=== PATIENT | male | born 1980 | race Caucasian/White ===

== ENCOUNTER 2023-02-02 19:13 | Emergency (ER) | payer OTHER, SELFPAY ==
[2023-02-02 19:27] VITALS: BP 139/80; PULSE 84; RESP 16; TEMP 36.9; O2SAT 97
--- NOTE | 2023-02-02 19:52 | ED.GENADUL_ITS ---
Discharge Plan Disposition Patient Disposition: Home Condition: Stable Discharge Details Clinical Impression: Streptococcal sore throat Primary Care Provider: Shakira Grubbs V ED Provider: Maria Del Carmen Hahn Home Meds and New Rx's Prescriptions: New clindamycin HCl 300 mg capsule 300 mg PO BID 10 Days Qty: 20 0RF Rx Instructions: Take 1 capsule twice daily for the next 10 days No Action cetirizine [Zyrtec] 10 mg Tablet 10 mg PO DAILY Discharge Instructions Instructions: Strep Throat (ED) Stand Alone Forms: Work Release Discharge Data Discharge Date/Time-TO BE ENTERED AT DEPARTURE: 02/02/23 20:14 Medical Decision Making 42-year-old male presents to the ER with a chief complaint of sore throat which has been worse for the last 3 to 4 days he does have positive exudate is erythemic tonsils are 2+ bilaterally. Does have recurrent strep last treated in October. He has no known drug allergies. Rapid strep negative at this time. Patient given Clindamycin, instructed on home care and discharged to follow up with PCP if needed. HPI General Mode of arrival: ambulatory . Date/Time Provider Initiated Documentation: 02/02/23 19:22 . Limitations to Documentation: no limitations . Information obtained by: patient, RN notes reviewed and old records reviewed . HPI Narrative: 42 year old male presents with cc of sore throat with exudate x 4 days. He presents with his significant other with similar complaints. He has had Strep multiple times in the past, as recent as October. Denies any cough, fever, or any other associated symptoms. Related Data Home Medications Medication Instructions Recorded Confirmed cetirizine 10 mg tablet (Zyrtec) 10 mg PO DAILY 02/02/23 02/02/23 clindamycin HCl 300 mg capsule 300 mg PO BID Strep throat 10 days 02/02/23 #20 caps Previous Rx's Medication Instructions Recorded clindamycin HCl 300 mg capsule 300 mg PO BID Strep throat 10 days 02/02/23 #20 caps Allergies Allergy/AdvReac Type Severity Reaction Status Date / Time cats Allergy Uncoded 02/02/23 19:32 General Stated Complaint: Sorethroat NURIA: 4 Review of Systems All systems reviewed & are unremarkable except as noted in HPI and below ENT Ears, Nose, Mouth, and Throat: Reports as per HPI and Reports sore throat PFSH All Active Problems (Updated 02/02/23 @ 19:56 by Maria Del Carmen Hahn NP) Streptococcal sore throat (Acute) Social History Smoking/Tobacco Use Status: Never Smoking risk assessment performed?: Yes Alcohol Intake: never Drug use: Never Substance use type: does not use Do you feel safe in your relationship?: Yes Exam HENMT Teeth and gingiva: dentition normal Throat: posterior oropharynx abnormal erythema and exudates Resp Effort & Inspection: normal respiratory effort and able to speak in complete sentences Auscultation: clear to auscultation bilaterally Course Vital Signs Vital signs: Vital Signs Temperature 36.9 C 02/02/23 19:27 Pulse 84 02/02/23 19:27 Respiratory Rate 16 02/02/23 19:27 Blood Pressure 139/80 02/02/23 19:27 Pulse Oximetry 97 02/02/23 19:27 Temperature 36.9 C 02/02/23 19:27 Temperature Source Temporal Artery Scan 02/02/23 19:27 Pulse 84 02/02/23 19:27 Respiratory Rate 16 02/02/23 19:27 Respiratory Effort Normal 02/02/23 19:27 Blood Pressure 139/80 02/02/23 19:27 Blood Pressure Position Sitting 02/02/23 19:27 Pulse Oximetry 97 02/02/23 19:27 Oxygen Delivery Method Room Air 02/02/23 19:27 Oxygen Flow Rate 0 02/02/23 19:27 Lab/Test Results Lab/Test Results: 02/02/23 19:20 Pharynx Group A Streptococcus Culture - Pending POC Strep Test-BONILLA(Rapid) Start: 02/02/23 19:22 Freq: .Rapid Strep Test Status: Active Protocol: Document 02/02/23 19:35 CB (Rec: 02/02/23 19:35 CB [id number]) Strep test-BONILLA(Rapid)-POC POC-Strep test-BONILLA (Rapid) Negative POC-Strep test-BONILLA (Rapid) Negative
[2023-02-02] MEDS: Clindamycin 150 MG CAP 300 MG PO (20:00)
== END 2023-02-02 20:14 | disposition home or self-care (01) ==
PROVIDERS: Emergency Provider Registered Nurse Emergency; PCP Family Medicine
DX: J02.0 Streptococcal pharyngitis (principal)
CPT/HCPCS: 87880; 99283; 87081; 99282

== ENCOUNTER 2023-11-16 09:50 | Emergency (ER) | payer OTHER, SELFPAY ==
[2023-11-16 10:04] VITALS: BP 145/105; PULSE 81; RESP 18; TEMP 36.5; O2SAT 98
--- NOTE | 2023-11-16 10:39 | W.ED.GENAD ---
Discharge Plan Disposition Patient Disposition: Home Discharge Details Clinical Impression: Acute upper respiratory infection Primary Care Provider: Shakira Grubbs V ED Provider: Evan Nicole Home Meds and New Rx's Prescriptions: No Action cetirizine [Zyrtec] 10 mg Tablet 10 mg PO DAILY Discharge Instructions Instructions: Upper Respiratory Infection ED Additional Instructions: Please stay well-hydrated, use appropriate [id number] cough and cold medications that match your symptoms and get plenty of rest. As discussed return to the emergency department, urgent care or your primary care provider if you have any significant worsening of symptoms or fever after 7 days. Also if not seeing signs of improvement in the next week please follow-up for reassessment Referrals: Shakira Grubbs MD [Primary Care Provider] - (As needed for reassessment) HPI General Mode of arrival: ambulatory. Date/Time Provider Initiated Documentation: 11/16/23 10:03. Limitations to Documentation: no limitations. Information obtained by: patient and RN notes reviewed. History of Present Illness 43 year old M presents to the emergency department with the chief complaint of Cough, nasal congestion, sore throat, described as moderate, Patient started experiencing this day(s) (4) and it has been constant. No relieving factors improve symptom(s), No exacerbating factors reported . Patient did receive the following treatments prior to arrival, none Related Data Home Medications Medication Instructions Recorded Confirmed cetirizine 10 mg tablet (Zyrtec) 10 mg PO DAILY 02/02/23 11/16/23 Allergies Allergy/AdvReac Type Severity Reaction Status Date / Time cats Allergy Mild Wheezing Uncoded 11/16/23 10:09 General Stated Complaint: RespSymp NURIA: 3 Review of Systems Constitutional Constitutional: Reports body ache(s), Reports chills and Reports malaise Eyes Eyes: Denies eye discharge ENT Ears, Nose, Mouth, and Throat: Reports as per HPI, Denies ear discharge, Denies otalgia, Reports nasal congestion, Denies neck pain, Reports sinus pressure, Reports sore throat and Denies throat swelling Cardiovascular Cardiovascular: Denies chest pain and Reports dyspnea Respiratory Respiratory: Reports cough and Reports dyspnea Musculoskeletal Musculoskeletal: Denies joint swelling and Denies neck pain Integumentary/Breasts Skin/Breast: Denies rash Allergic/Immunologic Allergic/Immunologic: Denies throat swelling Exam Const General: cooperative, comfortable and no acute distress Orientation: alert and awake [facility] Head: normal to inspection, normocephalic and atraumatic Ears: hearing grossly normal bilaterally and TM's normal bilaterally General nose exam: external nose normal Face and sinus: no erythema Mouth: oral mucosae normal, no drooling, no muffled voice and no trismus Throat: posterior oropharynx normal Neck Neck: normal visual inspection, full ROM, no lymphadenopathy, no meningeal signs, trachea midline and supple Resp Effort & Inspection: normal respiratory effort, able to speak in complete sentences and cough Quality of cough: dry Auscultation: clear to auscultation bilaterally Cardio Rate: regular rate Rhythm: regular rhythm Heart Sounds: S1 normal, S2 normal, normal S1 and S2, no click, no gallops, no murmurs and no rubs Skin General skin exam: no rashes or lesions noted and dry skin (warm) Neuro General: patient alert, patient awake, patient oriented x3, gait normal and moves all extremities Cognition: normal cognition Speech: speech normal Course Vital Signs Vital signs: Vital Signs Temperature 36.5 C 11/16/23 10:04 Pulse 81 11/16/23 10:04 Respiratory Rate 18 11/16/23 10:04 Blood Pressure 145/105 H 11/16/23 10:04 Pulse Oximetry 98 11/16/23 10:04 Temperature 36.5 C 11/16/23 10:04 Temperature Source Tympanic 11/16/23 10:04 Pulse 81 11/16/23 10:04 Respiratory Rate 18 11/16/23 10:04 Blood Pressure 145/105 H 11/16/23 10:04 Blood Pressure Position Sitting 11/16/23 10:04 Pulse Oximetry 98 11/16/23 10:04 Oxygen Delivery Method Room Air 11/16/23 10:04 Oxygen Flow Rate 0 11/16/23 10:04 Pain Level 4 11/16/23 10:04 Comment Dayquil at 0500 11/16/23 10:04 Medical Decision Making Patient presenting to the clinic for chief complaint of cold symptoms. Patient reports symptoms have been going on for the past4 days. reports cough, nasal congestion, and sore throat. Physical exam shows mild posterior pharynx and tonsillar erythema, no lymphadenopathy, no tachycardia, otherwise noncontributory HEENT exam, otherwise clear lung sounds . Review of vital signs show mild hypertension but again no tachycardia, no fever, no tachypnea, and no hypoxia. Patient has no signs of meningitis, peritonsillar abscess, retropharyngeal abscess, Anival's angina, or life-threatening Airway infection. Given patient's age and low risk factors did discuss with patient low utility of COVID testing or other viral testing given that he is 4 days into symptoms and has expected to even mostly benign exam. After this discussion we did review conservative management along with follow-up and return precautions. After discussion of diagnosis and plan of care patient has no further needs, questions, or concerns and states clear understanding to return to the emergency department for any worsening symptoms. This documentation was generated using [employer] dictation system, please disregard any oddities of phrase or misspellings. Quality:SDOH Health Related Social Needs: No Data to Display PFSH All Active Problems Acute upper respiratory infection (Acute) Social History Smoking/Tobacco Use Status: Never Smoking risk assessment performed?: Yes Alcohol Intake: never Drug use: Never Substance use type: does not use Housing: house Do you feel safe in your relationship?: Yes
[2023-11-16 10:46] VITALS: BP 145/105; PULSE 81; RESP 18; TEMP 36.5; O2SAT 98
== END 2023-11-16 10:50 | disposition home or self-care (01) ==
LOC: ER 10:48
PROVIDERS: Emergency Provider Nurse Practitioner Family; PCP Family Medicine
DX: J06.9 Acute upper respiratory infection, unspecified (principal)
CPT/HCPCS: 99281; 99282

== ENCOUNTER 2024-04-11 19:36 | Emergency (ER) | payer OTHER, SELFPAY ==
[2024-04-11] VITALS (31 sets, daily range): BP systolic 131–165; BP diastolic 82–99; PULSE 63–86; RESP 9–23; TEMP 36.6; O2SAT 93–100
[2024-04-11] MEDS: diazePAM 10 MG/2 ML SYR 5 MG IVP (20:09)
[2024-04-11] MEDS: Meclizine 25 MG TAB PO ×3 (20:38→23:02)
--- NOTE | 2024-04-11 21:04 | ED.GENADUL_ITS ---
Discharge Plan Disposition Patient Disposition: Home Discharge Details Clinical Impression: Vertigo Primary Care Provider: Shakira Grubbs V ED Provider: Dakota Hightower Home Meds and New Rx's Prescriptions: New ondansetron 4 mg tablet,disintegrating 4 mg PO Q6H PRN (Reason: nausea and vomiting) Qty: 20 0RF meclizine 25 mg tablet 25 mg PO TID PRN (Reason: dizziness) Qty: 20 0RF No Action cetirizine [Zyrtec] 10 mg Tablet 10 mg PO DAILY Discharge Instructions Instructions: Vertigo ED HPI General Date/Time Provider Initiated Documentation: 04/11/24 19:45 . Limitations to Documentation: no limitations . Information obtained by: patient and family () . HPI Narrative: 43-year-old gentleman without significant past medical history presents for evaluation of acute onset dizziness. He reports that he was standing in his kitchen when he started to feel like the room was spinning. This was not associated with any headache, visual change or ear ringing. He states that he went and laid down for and started to feel little bit better in terms of the dizziness, but then started vomiting. He had several episodes of vomiting. He says that he does feel worse when he looks to the right. his states that she difficulty getting him into the car because he seemed a little unsteady. There was not any difficulty with walking, he is states that he just felt so dizzy. He says since arriving here he feels much better. This is never happened before. Symptoms not associated with any weakness or speech change. Related Data Home Medications ?Medication ?Instructions ?Recorded ?Confirmed cetirizine 10 mg tablet (Zyrtec) 10 mg PO DAILY 02/02/23 04/11/24 meclizine 25 mg tablet 25 mg PO TID PRN dizziness #20 tabs 04/11/24 ondansetron 4 mg disintegrating 4 mg PO Q6H PRN nausea and 04/11/24 tablet vomiting #20 tabs Previous Rx's ?Medication ?Instructions ?Recorded meclizine 25 mg tablet 25 mg PO TID PRN dizziness #20 tabs 04/11/24 ondansetron 4 mg disintegrating 4 mg PO Q6H PRN nausea and 04/11/24 tablet vomiting #20 tabs Allergies Allergy/AdvReac Type Severity Reaction Status Date / Time cats Allergy Mild Wheezing Uncoded 04/11/24 19:46 General Stated Complaint: Nausea/Vomit/Diar NURIA: 3 Exam Narrative Exam Narrative: Review of Systems: All systems reviewed & are unremarkable except as noted in HPI and below Lying with eyes closed NCAT PERRL, normal conjunctiva + Nystagmus when looking to the right RRR Unlabored respiratory effort clear bilaterally Nondistended abdomen soft nontender no focal neurologic deficits normal strength and sensation throughout Course Vital Signs Vital signs: Vital Signs Temperature 36.6 C 04/11/24 19:43 Pulse 86 04/11/24 19:43 Respiratory Rate 18 04/11/24 19:43 Blood Pressure 165/85 H 04/11/24 19:43 Pulse Oximetry 97 04/11/24 19:43 Temperature 36.6 C 04/11/24 20:42 Temperature Source Oral 04/11/24 20:10 Pulse 86 04/11/24 20:42 Respiratory Rate 18 04/11/24 20:42 Respiratory Effort Normal, Non-Labored 04/11/24 20:10 Blood Pressure 165/85 H 04/11/24 20:42 Blood Pressure Position Supine 04/11/24 20:10 Pulse Oximetry 97 04/11/24 20:42 Oxygen Delivery Method Room Air 04/11/24 20:10 Oxygen Flow Rate 0 04/11/24 20:10 Medical Decision Making Urgent evaluation of acute onset dizziness. Symptoms cannot seem consistent with peripheral vertigo. There were no central symptoms or focal neurologic deficit at this time. Will give a dose of Valium and reassess Patient reports improvement in the symptoms, he is now sitting upright and looking at his phone. He reports some mild dizziness, but the nausea is resolved. Will give an oral dose of meclizine. After additional dose of meclizine, symptoms have significantly improved and the patient is tolerating p.o. and able to ambulate. Will discharge with a take- home pack of these medicines as well as additional prescriptions sent to the pharmacy. I have advised return precautions and recommend close follow-up with PCP. If symptoms persist, he may benefit from vestibular PT. Quality:SDOH Health Related Social Needs: No Data to Display PFSH All Active Problems (Updated 04/11/24 @ 22:57 by Dakota Hightower MD) Vertigo (Acute) Social History Smoking/Tobacco Use Status: Never Smoking risk assessment performed?: Yes Alcohol Intake: never Drug use: Never Substance use type: does not use Housing: house Do you feel safe in your relationship?: Yes
[2024-04-11] MEDS: Ondansetron O.D.T. 4 MG TABEF, 3 TABS/BTL PO (23:02)
== END 2024-04-11 23:06 | disposition home or self-care (01) ==
PROVIDERS: Emergency Provider Emergency Medicine; PCP Family Medicine
DX: R42 Dizziness and giddiness (principal); R11.2 Nausea with vomiting, unspecified
CPT/HCPCS: 96374; 99284; 99283; J3360